=== PATIENT | male | born 1995 | race African-American/Black ===

== ENCOUNTER → 2018-06-16 | Outpatient (REF) ==
[2018-06-16 10:23] LABS: RUBELLA IgG QUALITATIVE IMMUNE (IMMUNE)
[2018-06-17 08:17] LABS: HERPES ZOSTER, VARICELLA IgG 712 index (Immune >165)
== END ==
LOC: M LAB 08:20
DX: Z00.00 Encounter for general adult medical examination without abnormal findings (principal)